=== PATIENT | female | born 1960 | race Caucasian/White ===

== ENCOUNTER 2025-07-27 11:12 | Outpatient (CLI) | payer MEDICARE, OTHER | END 2025-07-27 11:13 | disposition home or self-care (01) | LOC: SCSBT 11:12 | PROVIDERS: ATTEND Family Medicine Sports Medicine | DX: Z78.0 Asymptomatic menopausal state (principal); M85.89 Other specified disorders of bone density and structure, multiple sites | CPT/HCPCS: 77080 ==